=== PATIENT | male | born 1980 | race Caucasian/White ===

== ENCOUNTER 2024-01-29 10:13 | Day surgery (SDC) | payer BC ==
[~2024-01-29 10:13] MED LIST: HYDROmorphone 0.5 MG/0.5 ML SYRINGE IVP PRN
[2024-01-29] MEDS: IV FLUID CONTINUATION 1,000 ML IV ONE (10:46)
[2024-01-29] MEDS: LACTATED RINGERS 1,000 ML IV SCH (10:46)
[2024-01-29] MEDS: DEXAMETHASONE SOD PHOSPHATE 4 MG/ML 1 ML VIAL IV ONE (10:58)
[2024-01-29] MEDS: ONDANSETRON 4 MG/2 ML VIAL IVP ONE (10:59)
[2024-01-29] MEDS: MIDAZOLAM 2 MG/2 ML VIAL IV PRN (11:06)
[2024-01-29] MEDS: SCOPOLAMINE 1 MG/72 HR PATCH TRANSDERM ONE (11:21)
[2024-01-29] MEDS ORDERED: ROPIVACAINE 5 MG/ML 30 ML VIAL ONE (12:04)
[2024-01-29] MEDS ORDERED: LIDOCAINE 1% INJ 10MG/ML (20 ML MDV) ONE (12:04)
[2024-01-29] MEDS ORDERED: fentaNYL (PF) 50 MCG/ML 2 ML AMP ONE (12:04)
[2024-01-29] MEDS ORDERED: SUCCINYLCHOLINE CHLORIDE 200 MG/10 ML VIAL IV ONE (12:04)
[2024-01-29] MEDS ORDERED: DEXAMETHASONE SOD PHOSPHATE 4 MG/ML 1 ML VIAL ONE (12:04)
[2024-01-29] MEDS ORDERED: PROPOFOL 10 MG/ML 20 ML VIAL IV ONE (12:04)
[2024-01-29] MEDS ORDERED: MIDAZOLAM 2 MG/2 ML VIAL ONE (12:04)
--- NOTE | 2024-01-29 12:27 | P.ANPRN ---
Procedure Note - Anesthesia - Nerve Block Performed Left Adductor Canal Single Time Out Performed: Yes Date of Procedure: 01/29/24 Procedure Start Time: 11:06 Procedure Stop Time: 11:14 Location of Patient: PreOp Indication: Acute Post-Operative Pain, Requested by Surgeon Sedation Type: Sedate with meaningful contact maintained Preparation: Sterile Prep, Sterile Dressing Position: Supine Catheter: None Needle Types: Facet Needle Gauge: 20 Ultrasound used to visualize needle placement: Yes Ultrasound used to observe medication spread: Yes Injectate: 0.5% Ropivacaine (see comment for volume) (10 ml + decadron 2 mg) Blood Aspirated: No Pain Paresthesia on Injection Noted: No Resistance on Injection: Normal Image Stored and Saved: Yes Events: Uneventful and Well Tolerated Left Popliteal Single Time Out Performed: Yes Date of Procedure: 01/29/24 Procedure Start Time: 11:15 Procedure Stop Time: 11:22 Location of Patient: PreOp Indication: Acute Post-Operative Pain, Requested by Surgeon Sedation Type: Sedate with meaningful contact maintained Preparation: Sterile Prep, Sterile Dressing Position: Right Lateral Catheter: None Needle Types: Facet Needle Gauge: 20 Ultrasound used to visualize needle placement: Yes Ultrasound used to observe medication spread: Yes Injectate: 0.5% Ropivacaine (see comment for volume) (20 ml + decadron 2 mg) Blood Aspirated: No Pain Paresthesia on Injection Noted: No Resistance on Injection: Normal Image Stored and Saved: Yes Events: Uneventful and Well Tolerated
[2024-01-29] MEDS: LACTATED RINGERS 1,000 ML IV ONE (14:01)
[2024-01-29 14:24] VITALS: RESP 16; TEMP 97.5
--- NOTE | 2024-01-29 14:26 | P.OP ---
Date of Procedure: 01/29/24 Preoperative Diagnosis: 1. Displaced posterior malleolar fracture left ankle 2. Displaced fibular shaft fracture left leg 3. Ruptured syndesmosis left ankle Postoperative Diagnosis: 1. Same 2. Same 3. Same Procedure(s) Performed: 1. Open reduction with internal fixation left posterior malleolar fracture 2. Open reduction with internal fixation fibular shaft fracture left leg 3. Open reduction with internal fixation syndesmotic rupture left ankle Implants: Moris one third tubular plate with 3.5 mm locking and nonlocking screws Mcclelland Y plate with 3.5 mm locking and nonlocking screws Arthrex tight rope Anesthesia: [place] Surgeon: Darin Arnett Estimated Blood Loss (ml): 20 Pathology: none sent Condition: stable Disposition: PACU Description of Procedure: Prior to the patient being brought to the operating room, anesthesia administered nerve block on the surgical extremity. Once completed, the patient was taken into the operating room. Timeout was taken to confirm correct patient identifiers, correct laterality of surgery, and correct procedure. When all staff in the room were in agreement with the timeout, the patient was induced and placed under general anesthesia. The patient was then placed in the prone position on the operating room table. Appropriate padding was placed beneath the patient's face as well as in the thoracic area. Once anesthesia was satisfied with the patient positioning, a well-padded tourniquet was placed on the thigh. Then the leg was prepped and draped in the usual manner. The leg was exsanguinated and the tourniquet inflated to 250 mmHg. attention directed over the posterior lateral ankle where an incision was made between the Achilles tendon and peroneal tendons. The incision was deepened down to the subcutaneous tissue careful to identify, avoid, and retract any neurovascular structures and cauterize any bleeding vessels. Blunt dissection was continued down to the deep fascia. The deep fascia was incised and then the muscles are a septa to create a tissue plane to the posterior tibia. The deep tissues reflected off the posterior aspect of the tibia just superior to the ankle joint. The posterior malleolar fragment was identified and mobilized. It was distracted away from the tibia to remove any interposing soft tissue and bony fragments. Once that was completed point point reduction clamp was utilized to reduce the fracture. Fluoroscopy was used to confirm the position of the fracture in AP and lateral views. A Moris Y plate was then positioned over the fracture and temporarily fixated. When it was satisfactorily positioned based on fluoroscopy, compression screws were placed in the plate distally to the fracture from a posterior anterior direction. There also angled slightly superiorly to avoid the ankle joint. Once the room p lace screws superior to the fracture were placed first was a nonlocking screw just superior to the fracture line this is a bicortical screw from posterior to anterior to contour the plate to the posterior aspect of the tibia the last screw was the most superior aspect of the plate which is another posterior to anterior screw which was locking. Final fluoroscopic imaging for the AP and lateral views showed anatomic reduction of the fracture with proper position of the hardware. The wound is irrigated thoroughly with antibiotic saline. The deep fascia was closed with 2-0 Vicryl. Superficial fashion subcutaneous layer was closed with 2-0 Vicryl. Skin closure done with spike. As directed over the proximal fibula were fluoroscopy was used to locate the area of the fracture. The incision was made over this area and deepened down to the subcutaneous tissue careful to identify and avoid, and retract any neurovascular structures and cauterize any bleeding vessels. Blunt dissection was carried to the fascia overlying the peroneal muscle bellies. The fascia was incised and the septa between the muscle bellies was divided and the muscles retracted posteriorly and anteriorly. Dissection was carried down to the fracture in the fibula. An elevator was used to remove separate the soft tissue off the bony segments. Utilizing a combination of a Víctor as well as a periosteal elevator, the hematoma and any interposing tissue and the fracture fragments was removed. 2 reduction forceps were used to completely reduce and bring the fracture out to length. The alignment was confirmed under fluoroscopy. Wires were placed from anterior to posterior across the fracture fragment to maintain the alignment. A one third tubular plate was placed over the fracture span its length. Nonlocking screws were placed in the second most distal and proximal holes of the plate on either side of the fracture to contour the plate in the most distal and proximal holes were filled with 3.5 mm locking screws for neutralization. The pins were cut flush with the old. Fluoroscopic imaging showed anatomic alignment of the fracture in AP and lateral views. The wound is irrigated and back saline. Deep closure done with 2-0 Vicryl. And skin closure done with spike. Then attention was directed over the lateral malleolus. Incision was made for the placement of the tight rope. His taken directly down to bone and the soft tissue reflected off the lateral aspect of the lateral malleolus.a guidewire for the tight rope was then placed on the lateral side of the fibula and advanced from lateral to medial parallel to the ankle joint, and directed slightly anterior to about the medial aspect of the tibia. Once the pin was in place fluoroscopy was used to confirm its placement. Drilling was then performed until the medial cortex of the tibia was drilled. The tight rope was felt through a 2 hole titanium plate, and then was placed in the drill hole and advanced until the button was clear of the medial tibial cortex. The button was deployed and the manipulated to lay flat against the medial side of the tibia. Then the plate was brought up against the fibula and then the reduction forceps was used to reduce the syndesmosis. The tight rope was fully tightened until lateral button was tightened against the plate. 3.5 mm locking screws placed the remaining hole the 2 hole plate to prevent rotation. stress testing was performed under fluoroscopy and there is no separation of the syndesmosis and no gapping of the medial gutter. The last wound was thoroughly irrigated with antibiotic saline. Deep closure done with 2-0 Vicryl, and skin closure done with spike. sterile dressings applied to the left ankle. Tourniquet was released and capillary refill return to all digits on the left foot. Patient's placed a well-padded, well molded posterior mold/sugar tong splint with the ankle held in neutral position until dried. Then anesthesia was reversed and the patient taken recovery with vital signs stable.
--- NOTE | 2024-01-29 14:56 | XR ---
Fluoroscopy History: LEFT ANKLE FX LT ankle ORIF with Arnett. 1 min 22 sec fluoro time. .[id number] DAP. 3 images saved.
[2024-01-29] MEDS: HYDROcodone/APAP 5-325MG 1 EACH TAB PO STA (15:13)
[2024-01-29 15:25] VITALS: BP 133/85; PULSE 65
== END 2024-01-29 16:00 | disposition home or self-care (01) ==
LOC: OR 10:13
PROVIDERS: ATTEND Podiatrist
DX: S82.842A Displaced bimalleolar fracture of left lower leg, initial encounter for closed fracture (principal); S93.432A Sprain of tibiofibular ligament of left ankle, initial encounter; G89.18 Other acute postprocedural pain; X58.XXXA Exposure to other specified factors, initial encounter
CPT/HCPCS: 64447; 64445; 73610; 27792; C1713; J2250; J0330; J1100; J0690; J2405; J2001; J3010; J2795; J2704